=== PATIENT | male | born 1980 | race Caucasian/White ===

== ENCOUNTER 2022-04-26 13:12 | Outpatient (CLI) | payer BC, SELFPAY ==
[2022-04-26 13:36] LABS: Albumin* 4.4 g/dL (3.3-5.0); Chloride* 104 mmol/L (96-114)
[2022-04-26 13:37] LABS: Potassium* 4.3 mmol/L (3.6-5.1)
[2022-04-26 13:39] LABS: Alkaline Phosphatase* 74 U/L (40-150); Aspartate Amino Transferase* 31 U/L (12-35); Bilirubin Total* 1.2 mg/dL (0.1-1.5); Blood Urea Nitrogen* 14 mg/dL (5-24); Carbon Dioxide* 29 mmol/L (20-32); Cholesterol* 185 mg/dL (90-199); Creatinine* 0.8 mg/dL (0.5-1.5); Estimated Glomerular Filt Rate 115 ml/min; Glucose* 84 mg/dL (60-115); Triglycerides* 204 mg/dL (40-149)
[2022-04-26 13:40] LABS: Alanine Aminotransferase* 35 U/L (4-50); Calcium* 9.5 mg/dL (8.4-10.6)
[2022-04-26 13:56] LABS: HDL Cholesterol* 53 mg/dL (>=40); LDL Cholesterol Calculated 91 mg/dL (<100)
[2022-04-26 14:38] LABS: Sodium* 140 mmol/L (135-149)
== END 2022-04-26 13:13 | disposition home or self-care (01) ==
PROVIDERS: PCP Physician Assistant Medical; Visit Provider Physician Assistant Medical
DX: Z00.00 Encounter for general adult medical examination without abnormal findings (principal); E78.5 Hyperlipidemia, unspecified; I10 Essential (primary) hypertension; R79.89 Other specified abnormal findings of blood chemistry; F41.9 Anxiety disorder, unspecified
CPT/HCPCS: 80053; 80061

== ENCOUNTER 2023-05-05 08:12 | Outpatient (CLI) | payer BC, SELFPAY | END 2023-05-05 08:13 | disposition home or self-care (01) | LOC: NFLDREF 05-08 07:41 | PROVIDERS: PCP Physician Assistant Medical; Referring Provider Physician Assistant Medical; Visit Provider Physician Assistant Medical | DX: Z00.00 Encounter for general adult medical examination without abnormal findings (principal); E78.5 Hyperlipidemia, unspecified; I10 Essential (primary) hypertension; R79.89 Other specified abnormal findings of blood chemistry; K76.0 Fatty (change of) liver, not elsewhere classified; R10.13 Epigastric pain | CPT/HCPCS: 80053; 80061; 83690; 84443 ==

== ENCOUNTER 2023-05-29 07:12 | Outpatient (CLI) | payer BC, SELFPAY ==
--- NOTE | 2023-05-29 07:15 | US_ITS ---
Final Report Patient: JULIAN JEAN Facility:?[facility] Patient ID:?[id number] Site Patient ID:?[id number]. Site :?[id number] Study:?US Abdomen RUQ-05/29/2023 7:38:36 AM Ordering Physician:?SHARATH RAMOS Final Report: INDICATION: : Abnormal labs COMPARISON: CT 01/22/2020 TECHNIQUE: Grayscale and color Doppler ultrasound of the right upper quadrant. FINDINGS: Pancreas: Largely obscured by bowel gas but normal where seen. Liver: Mildly echogenic and coarsened parenchyma with preserved through transmission. Patent portal vein with normal directional flow. Gallbladder and bile ducts: Normal gallbladder. No wall thickening. No stones or sludge. No biliary duct dilation. The common bile duct measures 2 mm. The right kidney measures 12.8 cm in length. Normal parenchymal echogenicity. Normal thickness. There is a 3.6 x 2.8 x 3.2 centimeter complex cystic lesion with 1 septation that measures up to 3 millimeters. Not fully evaluated due to rib shadowing, but does not appear appreciably changed in morphology since the previous CT. However, is larger. Prior ultrasound measured 2.7 x 2.7 x 2.9 centimeters. No mass. No calculi. No urinary tract dilation. No ascites. Normal caliber abdominal aorta. IMPRESSION: 1. Sonographically mild hepatic steatosis. 2. The 3.6 centimeter right renal cystic lesion is larger than before but has similar features. Dictated by Michelle Crane MD @ 05/29/2023 7:51:35 AM (Electronic Signature)
== END 2023-05-29 07:13 | disposition home or self-care (01) ==
LOC: US 07:12
PROVIDERS: PCP Physician Assistant Medical; Visit Provider Physician Assistant Medical
DX: R79.89 Other specified abnormal findings of blood chemistry (principal); N28.1 Cyst of kidney, acquired
CPT/HCPCS: 76705

== ENCOUNTER 2023-06-05 10:44 | Outpatient (CLI) | payer BC, SELFPAY ==
--- NOTE | 2023-06-05 11:07 | W.ANESCHARGE ---
Anesthesia Charges Start Date/Time Anesthesia Start Date: 06/05/23 Anesthesia Start Time: 11:54 Stop Date/Time Anesthesia Stop Date: 06/05/23 Anesthesia Stop Time: 12:15
--- NOTE | 2023-06-05 12:17 | W.ANESCHARGE ---
Anesthesia Charges Start Date/Time Anesthesia Start Date: 06/05/23 Anesthesia Start Time: 11:54 Stop Date/Time Anesthesia Stop Date: 06/05/23 Anesthesia Stop Time: 12:15
== END 2023-06-05 10:45 | disposition home or self-care (01) ==
PROVIDERS: PCP Physician Assistant Medical; Visit Provider Surgery
DX: K21.9 Gastro-esophageal reflux disease without esophagitis (principal)
CPT/HCPCS: 00731; 43239; 88305; J2704

== ENCOUNTER 2024-05-06 07:54 | Outpatient (CLI) | payer OTHER, SELFPAY | END 2024-05-06 07:55 | disposition home or self-care (01) | LOC: NFLDREF 05-10 02:57 | PROVIDERS: PCP Physician Assistant Medical; Referring Provider Physician Assistant Medical; Visit Provider Physician Assistant Medical | DX: E78.5 Hyperlipidemia, unspecified (principal); I10 Essential (primary) hypertension; Z13.29 Encounter for screening for other suspected endocrine disorder; Z11.4 Encounter for screening for human immunodeficiency virus [HIV]; Z11.59 Encounter for screening for other viral diseases | CPT/HCPCS: 80053; 80061; 84443; 86703; 86803 ==

== ENCOUNTER 2024-08-09 09:06 | Outpatient (CLI) | payer OTHER, SELFPAY | END 2024-08-09 09:07 | disposition home or self-care (01) | LOC: NFLDREF 08-16 00:40 | PROVIDERS: PCP Physician Assistant Medical; Referring Provider Physician Assistant Medical; Visit Provider Physician Assistant Medical | DX: E78.5 Hyperlipidemia, unspecified (principal); I10 Essential (primary) hypertension | CPT/HCPCS: 80053; 80061 ==

== ENCOUNTER 2025-01-17 09:05 | Outpatient (CLI) | payer OTHER, SELFPAY | END 2025-01-17 09:06 | disposition home or self-care (01) | LOC: LKVREF 09:07 | PROVIDERS: PCP Physician Assistant Medical; Visit Provider Physician Assistant Medical | DX: R79.89 Other specified abnormal findings of blood chemistry (principal) | CPT/HCPCS: 80076 ==